=== PATIENT | female | born 1950 | race Caucasian/White ===

== ENCOUNTER 2019-05-04 09:58 | Emergency (ER) | payer MEDICARE, BC ==
[2019-05-04] MEDS: LORAZEPAM 1 MG TAB PO (11:03)
[2019-05-04] MEDS: ACETAMINOPHEN 325 MG TAB PO (11:03)
[2019-05-04 11:15] LABS: ADD UMIC NO; UR ASCORBIC ACID NEGATIVE (NEGATIVE); UR BILIRUBIN (Dip) NEGATIVE (NEGATIVE); UR BLOOD (Dip) NEGATIVE (NEGATIVE); UR CLARITY CLEAR (CLEAR); UR COLOR YELLOW (YELLOW); UR GLUCOSE (Dip) NEGATIVE (NEGATIVE); UR KETONES (Dip) NEGATIVE (NEGATIVE); UR LEUKOCYTE ESTERASE (Dip) NEGATIVE Leu/ul (NEGATIVE); UR NITRITE (Dip) NEGATIVE (NEGATIVE); UR SPECIFIC GRAVITY (Dip) 1.015 (1.003-1.030); UR TOTAL PROTEIN (Dip) NEGATIVE (NEGATIVE); UR UROBILINOGEN (Dip) NEGATIVE (NEGATIVE)
[2019-05-04] MEDS: FENTAnyl 50 MCG/ML VIAL IV (13:07)
[2019-05-04] MEDS ORDERED: PROPOFOL 100 ML (13:34)
[2019-05-04] MEDS: PROPOFOL 200 MG INJ IV (14:22)
== END 2019-05-04 22:58 | disposition home or self-care (01) ==
LOC: FTE 09:58 → E/R 22:58
DX: S06.0X1A Concussion with loss of consciousness of 30 minutes or less, initial encounter (principal); S43.004A Unspecified dislocation of right shoulder joint, initial encounter; S42.141A Displaced fracture of glenoid cavity of scapula, right shoulder, initial encounter for closed fracture; S42.151A Displaced fracture of neck of scapula, right shoulder, initial encounter for closed fracture; I10 Essential (primary) hypertension; E11.9 Type 2 diabetes mellitus without complications; W01.0XXA Fall on same level from slipping, tripping and stumbling without subsequent striking against object, initial encounter; Y92.9 Unspecified place or not applicable; Z79.82 Long term (current) use of aspirin
CPT/HCPCS: 23650; 70450; 73030-RT; 81003; 94770; 99285-25